=== PATIENT | male | born 1980 | race Caucasian/White ===

== ENCOUNTER 2024-04-14 22:33 | Outpatient (CLI) | payer BC, SELFPAY | END 2024-04-14 22:34 | disposition home or self-care (01) | LOC: AMB 05-10 03:43 | PROVIDERS: Visit Provider Family Medicine | DX: S09.90XA Unspecified injury of head, initial encounter (principal); Y04.8XXA Assault by other bodily force, initial encounter; F10.129 Alcohol abuse with intoxication, unspecified | CPT/HCPCS: A0425; A0427 ==